=== PATIENT | male | born 1965 | race Caucasian/White ===

== ENCOUNTER 2022-08-07 09:36 | Emergency (ER) | payer BC, SELFPAY ==
--- NOTE | 2022-08-07 09:30 | RT.EKG_ITS ---
APPROVED REPORT Exam: Resting ECG Reason for Exam: sob Patient Location: E HR:60 bpm ECG Measurements Heart Rate 60 AXIS AK 147 P 44 QRSd 99 QRS -12 QT 396 T 30 QTc 395 Conclusion Sinus rhythm...normal P axis, V-rate 60- 99
[2022-08-07 09:40] VITALS: BP 162/87; PULSE 72; RESP 20; TEMP 36.4; O2SAT 100
[2022-08-07 09:45] VITALS: RESP 20
--- NOTE | 2022-08-07 10:00 | DI.RAD_ITS ---
Exam(s) XR CHEST 2V PA LATERAL EXAM: XR CHEST 2V PA LATERAL CLINICAL HISTORY: Shortness of breath TECHNIQUE: 2D digital imaging was performed. COMPARISON: No exams were available for comparison FINDINGS: HEART: Normal size. Aorta: Not dilated. PULMONARY VASCULATURE: Normal. LUNGS: Clear. PLEURAL SPACE: No pleural effusion or pneumothorax. BONE:Mild upper thoracic compression fractures. Mild degenerative changes. IMPRESSION: No acute abnormality. DATA REPOSITORY: RADIATION DOSE DELIVERED:
--- NOTE | 2022-08-07 10:08 | NUR.NOTE ---
Nursing Note:Report received from Ailyn TONG
[2022-08-07 10:21] LABS: Source Nasal/Nares
[2022-08-07 10:31] LABS: Abs Immature Grans 0.14 10^3/uL (0.0-0.06); Absolute Basophil Count 0.09 10^3/uL (0.0-0.2); Absolute Eosinophil Count 0.14 10^3/uL (0.0-0.7); Absolute Lymphocyte Count 1.96 10^3/uL (1.2-3.4); Absolute Monocyte Count 0.71 10^3/uL (0.1-0.8); Absolute Neutrophil Count 5.67 10^3/uL (1.2-6.7); Eosinophils % 1.6; HCT 48.8 % (40.0-50.0); HGB 16.8 g/dL (13.5-17.5); Immature Grans % 1.6; Lymphocytes % 22.5; MCH 30.4 pg (27.0-33.0); MCHC 34.4 % (32.0-36.0); MCV 88 fL (80-95); MPV 9.1 fL (8.0-11.0); Monocytes % 8.2; Neutrophils % 65.1; Platelet Count 266 10^3/uL (130-400); RBC 5.53 10^6/uL (4.36-5.78); RDW-SD 42.3 fL; WBC 8.71 10^3/uL (4.4-10.8)
--- NOTE | 2022-08-07 10:44 | ED.GENADUL_ITS ---
Discharge Plan Disposition Patient Disposition: Home Condition: Stable Discharge Details Clinical Impression: Mild shortness of breath Primary Care Provider: Khoa Burns ED Provider: Howie Lee Home Meds and New Rx's Prescriptions: No Action Stelara 90 mg/mL Syringe 90 mg SUBCUT Q12W Patient Comments: stopped taking because he didn't feel it was working. 08/07/22 Discharge Instructions Instructions: Dyspnea (ED) Additional Instructions: If you develop any significant new or worsening symptoms in your condition or have any further shortness of breath please return immediately to the emergency department for reassessment. Otherwise follow-up with your primary care provider in the next 1 to 2 weeks if your symptoms are not fully resolving. Referrals: Khoa Burns [Primary Care Provider] - Discharge Data Discharge Date/Time-TO BE ENTERED AT DEPARTURE: 08/07/22 11:59 Medical Decision Making Patient presenting to the emergency department for chief complaint of shortness of breath. Patient states this is been going on for the past 5 days with very mild intermittent cough. He has significant past medical history of psoriasis with use of multiple immunosuppressants attempting to resolve symptoms. Patient denies any fever chills, chest pain, URI symptoms, or other change in condition. He was due for a Humira infusion today which she canceled due to having symptoms. Physical exam is unremarkable for any findings. Given patient's persistent shortness of breath and otherwise healthy male we will plan on checking labs and chest x-ray. Did discuss with patient risk versus benefit of D-dimer while patient has low risk factors will perform this test. EKG was also performed. Pending results we will give updraft to see if this helps with patient's symptoms. Please see physician interpretation for full interpretation of EKG but upon my review patient is in sinus rhythm, has no findings to suggest or indicate STEMI. Review of labs show a unremarkable CBC no signs of shift, D-dimer is less than 500 considered negative, CMP shows slight elevation of total bilirubin at 1.1 otherwise all other values within normal limits, negative troponin. Patient is also negative for COVID. Reviewed chest x-ray along with radiologist interpretation that shows no acute findings. Patient was reassessed states no difference after albuterol inhaler. Did discuss with patient consideration of antihistamine but he states his symptoms are not bad enough to want to start anything at this point. We will place patient on referral to primary care provider since negative emergency department work-up at this time. Patient was instructed to return for any new or significant worsening of condition. After discussion of diagnosis and plan of care patient has no further needs, questions, or concerns and states clear understanding to return to the emergency department for any worsening symptoms. This documentation was generated using [employer] dictation system, please disregard any oddities of phrase or misspellings. Imaging Data Radiologic Study: Attestation: I personally reviewed and interpreted this imaging study as follows: Imaging: X-Ray Radiologist's impression: Exam(s) XR CHEST 2V PA LATERAL EXAM: XR CHEST 2V PA LATERAL CLINICAL HISTORY: Shortness of breath TECHNIQUE: 2D digital imaging was performed. COMPARISON: No exams were available for comparison FINDINGS: HEART: Normal size. Aorta: Not dilated. PULMONARY VASCULATURE: Normal. LUNGS: Clear. PLEURAL SPACE: No pleural effusion or pneumothorax. BONE:Mild upper thoracic compression fractures. Mild degenerative changes. IMPRESSION: No acute abnormality Lab Data Lab results reviewed: Yes I reviewed the patient's lab results. HPI General Mode of arrival: ambulatory . Date/Time Provider Initiated Documentation: 08/07/22 09:53 . Limitations to Documentation: no limitations . Information obtained by: patient and RN notes reviewed . History of Present Illness 56 year old M presents to the emergency department with the chief complaint of Shortness of breath, described as moderate, Quality is described as other (Denies pain or discomfort), Patient reports no radiation. Patient started experiencing this day(s) (5) and it has been constant. No relieving factors improve symptom(s), No exacerbating factors reported . Patient notes cough (Mild intermittent dry). Patient did receive the following treatments prior to arrival, none Related Data Home Medications Medication Instructions Recorded Confirmed ustekinumab 90 mg/mL subcutaneous 90 mg subcut Q12W 08/07/22 08/07/22 syringe (Stelara) Allergies Allergy/AdvReac Type Severity Reaction Status Date / Time No Known Allergies Allergy Unverified 08/07/22 09:48 General Stated Complaint: SOB RYLAN: 3 Review of Systems Constitutional Constitutional: Denies chills, Denies fever(s) and Denies malaise Cardiovascular Cardiovascular: Denies chest pain, Denies chest pain with activity, Denies syncope, Denies irregular heart rhythm, Denies palpitations and Reports dyspnea Respiratory Respiratory: Reports as per HPI, Reports cough, Denies hemoptysis, Denies pain with cough and Reports dyspnea Gastrointestinal Gastrointestinal: Denies abdominal pain, Denies nausea and Denies vomiting Neurologic Neurologic: Denies syncope Psychiatric Psychiatric: Denies anxiety Endocrine Endocrine: Denies cold intolerance, Denies heat intolerance and Denies palpitations PFSH All Active Problems (Updated 08/07/22 @ 11:55 by Howie Lee NP) Mild shortness of breath (Acute) Psoriasis (Chronic) Social History Smoking/Tobacco Use Status: Never Smoking risk assessment performed?: Yes Alcohol Intake: current Alcohol Intake frequency: a few times a week Alcohol type: beer Drug use: Never Substance use type: marijuana Do you feel safe at home: Yes Do you feel safe in your relationship?: Yes Exam Const General: cooperative, healthy appearing, comfortable, no acute distress, not diaphoretic and not ill appearing Nutritional Appearance: average body habitus Orientation: alert, awake and oriented x3 Limitations: mental status not altered Neck Neck: normal visual inspection, full ROM, trachea midline, supple and no anterior neck swelling Carotids: normal carotid upstroke and no bruits Resp Effort & Inspection: normal respiratory effort and able to speak in complete sentences Auscultation: clear to auscultation bilaterally Cardio Jugular venous pressure: no JVD Palpation: normal PMI Rate: regular rate Rhythm: regular rhythm Heart Sounds: S1 normal, S2 normal, no click, no gallops, no murmurs and no rubs Bruits: no carotid bruits Pulses: radial pulses present bilaterally 2+ Neuro General: patient alert, patient awake, patient oriented x3, tone normal and moves all extremities Course Vital Signs Vital signs: Vital Signs Temperature 36.4 C L 08/07/22 09:40 Pulse 72 08/07/22 09:40 Respiratory Rate 20 08/07/22 09:40 Blood Pressure 162/87 H 08/07/22 09:40 Pulse Oximetry 100 08/07/22 09:40 Temperature 36.4 C L 08/07/22 09:40 Temperature Source Tympanic 08/07/22 09:40 Pulse 72 08/07/22 09:40 Respiratory Rate 20 08/07/22 09:45 Respiratory Effort Normal, Non-Labored, Short of Breath 08/07/22 09:46 Respiratory Depth Normal 08/07/22 09:45 Respiratory Pattern Normal 08/07/22 09:45 Blood Pressure 162/87 H 08/07/22 09:40 Blood Pressure Position Sitting 08/07/22 09:40 Pulse Oximetry 100 08/07/22 09:40 Oxygen Delivery Method Room Air 08/07/22 09:40 Oxygen Flow Rate 0 08/07/22 09:40 Pain Level 0 08/07/22 09:40 Lab/Test Results Lab/Test Results: Laboratory Tests Range/Units 08/07/22 08/07/22 10:19 10:25 WBC (4.4-10.8) 10^3/uL 8.71 RBC (4.36-5.78) 10^6/uL 5.53 Hgb (13.5-17.5) g/dL 16.8 Hct (40.0-50.0) % 48.8 MCV (80-95) fL 88 MCH (27.0-33.0) pg 30.4 MCHC (32.0-36.0) % 34.4 RDW (11.8-14.1) % 13.0 Plt Count (130-400) 10^3/uL 266 MPV (8.0-11.0) fL 9.1 Immature Gran % 1.6 Neutrophils % 65.1 Lymphocytes % 22.5 Monocytes % 8.2 Eosinophils % 1.6 Basophils % 1.0 Nucleated RBC % (0.0-0.3) % 0.0 Absolute Neutrophils (1.2-6.7) 10^3/uL 5.67 Absolute Lymphocytes (1.2-3.4) 10^3/uL 1.96 Absolute Monocytes (0.1-0.8) 10^3/uL 0.71 Absolute Eosinophils (0.0-0.7) 10^3/uL 0.14 Absolute Basophils (0.0-0.2) 10^3/uL 0.09 COVID-19 Source Nasal/Nares PAWSS Have you Been Recently Intoxicated or Drunk Within the Last 30 days?: No Have you Ever Experienced Previous Episodes of Alcohol Withdrawal?: No Have you ever Experienced Withdrawal Seizures?: No Have you ever Experienced Delirium Tremens(DT)s?: No Have you ever undergone Alcohol Rehabilitation Treatment (i.e, inpt ot outpatient treatment programs)?: No Have you ever Experienced Blackouts?: No Have you ever Combined Alcohol with other Downers within the last 90 days?: No Have you ever Combined Alcohol with any other Substance of Abuse during the last 90 days?: No Positive Blood Alcohol level on Presentation? [PCS.BAL]: No Evidence of Increased Autonomic Activity (i.e. HR>120, tremor, sweating, agitation, nausea)?: No Result: 0
[2022-08-07 11:00] LABS: ALT 38 U/L (16-63); AST 26 U/L (15-37); Albumin 4.4 g/dL (3.4-5.0); Alkaline Phosphatase 85 U/L (46-116); Anion Gap 9.2 mmol/L (3-11); BUN 11 mg/dL (7-18); Bilirubin, Total 1.1 mg/dL (0.2-1.0); CO2 25.8 mmol/L (21.0-32.0); CREATININE 1.2 mg/dL (0.70-1.30); Calcium 9.3 mg/dL (8.5-10.1); Chloride 103 mmol/L (98-107); Estimated GFR 71.42 (mL/min/1.73m2); Glucose 105 mg/dL (74-106); Magnesium 2.1 mg/dL (1.8-2.4); Potassium 3.9 mmol/L (3.5-5.1); Sodium 138 mmol/L (136-145); Total Protein 8.2 g/dL (6.4-8.2)
[2022-08-07 11:03] LABS: D-Dimer 322 ng/mlFEU (<500)
[2022-08-07 11:04] LABS: Troponin I < 50 ng/L (<or=60)
[2022-08-07 11:05] LABS: COVID-19 PCR Negative (Negative)
[2022-08-07] MEDS: Albuterol/Ipratropium 3 ML UPD VIAL UPD (11:19)
[2022-08-07 11:26] VITALS: BP 136/85; PULSE 65; RESP 18; O2SAT 99
--- NOTE | 2022-08-07 11:56 | NUR.NOTE ---
Pt has been referred to his PCP Dr Burns to be seen in 1-2 weeks for SOB - EDNursing Note:
--- NOTE | 2022-08-07 15:08 | NUR.NOTE ---
Nursing Note: Dr. Abdirahman Cabral's office called stating that they follow the patient specifically a medication. They are requesting the provider note. The note has been faxed to this office.
== END 2022-08-07 11:59 | disposition home or self-care (01) ==
PROVIDERS: Emergency Provider Nurse Practitioner Family; PCP Internal Medicine
DX: R06.02 Shortness of breath (principal); E80.7 Disorder of bilirubin metabolism, unspecified; Z20.822 Contact with and (suspected) exposure to COVID-19
CPT/HCPCS: 36415; 80053; 87635; 93005; 94640; 99283; 71046; 83735; 84484; 85025; 85379; 93010; 99285; J7620

== ENCOUNTER 2022-08-10 02:09 | Outpatient (RCR) | payer BC, SELFPAY ==
[2022-08-10] VITALS (7 sets, daily range): BP systolic 129–153; BP diastolic 69–87; PULSE 67–77; RESP 16–17; TEMP 36.7–37.7; O2SAT 99–100
[2022-08-10] MEDS: Normal Saline Flush 10 ML SYR IVP (07:54)
== END 2022-08-18 23:59 | disposition home or self-care (01) ==
LOC: INF 02:09
PROVIDERS: PCP Internal Medicine; Visit Provider Internal Medicine
DX: L40.9 Psoriasis, unspecified (principal)
CPT/HCPCS: 96365; 96366; 96413; 96415; J1745

== ENCOUNTER 2022-08-24 02:38 | Outpatient (RCR) | payer BC, SELFPAY ==
[2022-08-19 00:10] VITALS: BP 153/83; PULSE 76; RESP 16; TEMP 37.1
[2022-08-24 08:08] VITALS: BP 143/74; PULSE 59; RESP 16; TEMP 36.5; O2SAT 100
[2022-08-24] MEDS: Normal Saline Flush 10 ML SYR IVP (08:08)
[2022-08-24 09:30] VITALS: BP 145/79; PULSE 58; RESP 16; TEMP 36.8; O2SAT 99
[2022-08-24 10:35] VITALS: BP 156/90; PULSE 77; RESP 16; TEMP 36.7; O2SAT 99
== END 2022-09-18 23:59 | disposition home or self-care (01) ==
LOC: INF 02:38
PROVIDERS: PCP Internal Medicine; Visit Provider Internal Medicine
DX: L40.9 Psoriasis, unspecified (principal)
CPT/HCPCS: 96365; 96366; 96413; 96415; J1745

== ENCOUNTER 2022-09-21 02:38 | Outpatient (RCR) | payer BC, SELFPAY ==
[2022-09-19 00:07] VITALS: BP 156/90; PULSE 77; RESP 16; TEMP 36.7
[2022-09-21 08:05] VITALS: BP 128/83; PULSE 69; RESP 17; TEMP 36.9; O2SAT 99
[2022-09-21] MEDS: Normal Saline Flush 10 ML SYR IVP (08:38)
[2022-09-21 10:47] VITALS: BP 131/87; PULSE 70; RESP 17; TEMP 36.8; O2SAT 100
== END 2022-10-18 23:59 | disposition home or self-care (01) ==
LOC: INF 02:38
PROVIDERS: PCP Internal Medicine; Visit Provider Internal Medicine
DX: L40.9 Psoriasis, unspecified (principal)
CPT/HCPCS: 96365; 96366; 96413; 96415; J1745

== ENCOUNTER 2022-11-17 03:24 | Outpatient (RCR) | payer BC, SELFPAY ==
[2022-10-19 00:15] VITALS: BP 131/87; PULSE 70; RESP 17; TEMP 36.8
[2022-11-17] MEDS: Normal Saline Flush 10 ML SYR IVP (08:47)
[2022-11-17 08:50] VITALS: BP 122/78; PULSE 91; RESP 17; O2SAT 98
[2022-11-17 11:00] VITALS: BP 126/79; PULSE 75; RESP 17; TEMP 37.1; O2SAT 98
== END 2022-11-18 23:59 | disposition home or self-care (01) ==
LOC: INF 03:24
PROVIDERS: PCP Internal Medicine; Visit Provider Internal Medicine
DX: L40.9 Psoriasis, unspecified (principal)
CPT/HCPCS: 96365; 96366; 96413; 96415; J1745

== ENCOUNTER 2023-01-12 03:26 | Outpatient (RCR) | payer BC, SELFPAY ==
[2022-11-19 00:16] VITALS: BP 126/79; PULSE 75; RESP 17; TEMP 37.1
[2023-01-12 08:18] VITALS: BP 136/82; PULSE 54
[2023-01-12] MEDS: Normal Saline Flush 10 ML SYR IVP (08:49)
[2023-01-12 10:55] VITALS: BP 132/78; PULSE 48
== END 2023-01-18 23:59 | disposition home or self-care (01) ==
LOC: INF 03:26
PROVIDERS: PCP Internal Medicine; Visit Provider Internal Medicine
DX: L40.9 Psoriasis, unspecified (principal)
CPT/HCPCS: 96365; 96366; 96413; 96415; J1745

== ENCOUNTER 2023-03-12 01:36 | Outpatient (RCR) | payer BC, SELFPAY ==
[2023-01-19 00:01] VITALS: BP 132/78; PULSE 48; RESP 17; TEMP 37.1
[2023-03-12] MEDS: Normal Saline Flush 10 ML SYR IVP (08:42)
[2023-03-12 08:45] VITALS: BP 114/73; PULSE 62; RESP 17; TEMP 37.2; O2SAT 99
[2023-03-12 11:23] VITALS: BP 129/80; PULSE 68; RESP 17; TEMP 37; O2SAT 100
== END 2023-03-20 23:59 | disposition home or self-care (01) ==
LOC: INF 01:36
PROVIDERS: PCP Internal Medicine; Visit Provider Internal Medicine
DX: L40.9 Psoriasis, unspecified (principal)
CPT/HCPCS: 96365; 96366; 96413; 96415; J1745

== ENCOUNTER 2023-04-30 03:56 | Outpatient (RCR) | payer BC, SELFPAY ==
[2023-03-21 00:10] VITALS: BP 129/80; PULSE 68; RESP 17; TEMP 37
[2023-04-30 08:00] VITALS: BP 124/79; PULSE 71; RESP 16; TEMP 37; O2SAT 98
[2023-04-30] MEDS: inFLIXimab 600 MG in Normal Saline 250 ML 125 MG IVPB (08:31)
[2023-04-30] MEDS: Normal Saline Flush 10 ML SYR IVP (08:33)
[2023-04-30 10:32] VITALS: BP 127/79; PULSE 62; RESP 16; TEMP 37; O2SAT 98
== END 2023-05-20 23:59 | disposition home or self-care (01) ==
LOC: INF 03:56
PROVIDERS: PCP Internal Medicine; Visit Provider Internal Medicine
DX: L40.9 Psoriasis, unspecified (principal)
CPT/HCPCS: 96365; 96366; 96413; 96415; J1745